=== PATIENT | female | born 1945 | race Caucasian/White ===

== ENCOUNTER 2017-12-13 09:15 | Inpatient (IN) | payer OTHER ==
[~2017-12-13] VITALS: Ht 172.7 cm; Wt 90.7 kg
[2017-12-13] MEDS ORDERED: SYNTHROID112 MCG PO (10:48)
[2017-12-13] MEDS ORDERED: LOSARTAN-HCTZ1 EACH PO (10:48)
[2017-12-13] MEDS ORDERED: GABAPENTIN100 MG PO (10:49)
== END 2017-12-18 12:32 | DRG 470 ==
LOC: O/R 12-15 08:00 → SURH 12-15 08:00
PROVIDERS: Orthopaedic Surgery
PROC: 0SRD0J9 Replacement of Left Knee Joint with Synthetic Substitute, Cemented, Open Approach (ICD-10-PCS; principal; 2017-12-15 09:00)
DX: M17.12 Unilateral primary osteoarthritis, left knee (principal); I10 Essential (primary) hypertension; E03.8 Other specified hypothyroidism